=== PATIENT | female | born 1955 | race Caucasian/White ===

== ENCOUNTER 2020-05-12 10:32 | Outpatient (REF) | payer MEDICARE, MEDICAID, SELFPAY ==
--- NOTE | 2020-05-12 10:49 | XR_ITS ---
EXAMINATION: XR CERVICAL SPINE CLINICAL INFORMATION: Cervicalgia COMPARISON: None TECHNIQUE: 3 views of the cervical spine were obtained. FINDINGS: There is slight anterolisthesis of C4 on C5 and C5 on C6. No acute fracture or subluxation. Vertebral body height and alignment is otherwise maintained. Mild disc space narrowing at C6-C7. Small multilevel endplate osteophytes with facet arthropathy. The atlantoaxial joint is well aligned. The dens is intact. The prevertebral soft tissues are unremarkable. The lung apices are clear. XR/XR cervical spine 2V IMPRESSION: Mild degenerative changes throughout the cervical spine.
[2020-05-12 13:28] LABS: Alanine Aminotransferase 24 U/L (0-31); Albumin Level 4.8 g/dL (3.5-5.0); Alkaline Phosphatase 58 U/L (39-117); Anion Gap 14 (12-20); Aspartate Amino Transferase 29 U/L (5-31); Bilirubin Total 0.4 mg/dL (0.0-1.0); Blood Urea Nitrogen 15 mg/dL (9-16); Calcium 9.5 mg/dL (8.4-10.2); Carbon Dioxide 30 mmol/L (22-29); Chloride 98 mmol/L (96-108); Estimated Glomerular Filt Rate > 60; Glucose Random 109 mg/dL (60-115); Potassium 3.9 mmol/l (3.3-5.1); Sodium 138 mmol/L (135-145); Total Protein 8.5 g/dL (6.5-8.0)
== END 2020-05-12 10:33 | disposition home or self-care (01) ==
LOC: HO.LAB 10:32
PROVIDERS: PCP Internal Medicine; Visit Provider Student in an Organized Health Care Education/Training Program
DX: R76.8 Other specified abnormal immunological findings in serum (principal); M54.2 Cervicalgia
CPT/HCPCS: 72040; 80053; 99212

== ENCOUNTER → 2021-03-29 13:09 | Outpatient (BNVA) | payer MEDICARE, MEDICAID, SELFPAY | PROVIDERS: PCP Internal Medicine; Visit Provider Nurse Practitioner Family | DX: M19.042 Primary osteoarthritis, left hand (principal); M54.2 Cervicalgia; R76.8 Other specified abnormal immunological findings in serum | CPT/HCPCS: 99212 ==

== ENCOUNTER 2021-04-26 08:07 | Outpatient (REF) | payer MEDICARE, MEDICAID, SELFPAY ==
--- NOTE | ~2021-04-26 | XR_ITS ---
EXAMINATION: XR HAND, LEFT CLINICAL INFORMATION: Pain in the left hand COMPARISON: 01/06/2019 TECHNIQUE: PA, lateral, and oblique views of the left hand. FINDINGS: There is no fracture or dislocation. Alignment is maintained. Mild joint space narrowing throughout the interphalangeal joints with small osteophytes. The soft tissues appear unremarkable. Mild chondrocalcinosis along the TFCC. XR/XR hand LT min 3V IMPRESSION: Mild degenerative changes throughout the interphalangeal joints.
== END 2021-04-26 08:08 | disposition home or self-care (01) ==
LOC: HO.HOSX 08:07
PROVIDERS: Visit Provider Orthopaedic Surgery
DX: M65.322 Trigger finger, left index finger (principal)
CPT/HCPCS: 20550; 73130; 99202; J1100

== ENCOUNTER → 2021-09-27 12:35 | Outpatient (BNVA) | payer MEDICARE, MEDICAID, SELFPAY | PROVIDERS: PCP Internal Medicine; Visit Provider Nurse Practitioner Family | DX: M19.042 Primary osteoarthritis, left hand (principal); R76.8 Other specified abnormal immunological findings in serum; M54.2 Cervicalgia; M65.322 Trigger finger, left index finger | CPT/HCPCS: 99212 ==

== ENCOUNTER 2021-10-03 07:37 | Outpatient (REF) | payer MEDICARE, MEDICAID, SELFPAY ==
[2021-10-03 08:04] LABS: MANUAL DIFF FLAG NO
[2021-10-03 08:30] LABS: Basophils Percent Auto 0.7 % (0-2); Eosinophils Absolute Auto 0.1 X10*3/uL (0.0-0.4); Eosinophils Percent Auto 1.1 % (0-4); Hemoglobin 13.7 g/dl (12.0-16.0); Imm Gran Abs Auto 0.01 X10*3/uL (0.00-0.03); Imm Gran Pct Auto 0.2 % (0.0-0.4); Lymphocytes Absolute Auto 1.8 X10*3/uL (1.2-4.9); Lymphocytes Percent Auto 32.8 % (20-40); Mean Corpuscular HGB Conc 34.3 g/dl (31.0-35.0); Mean Corpuscular Hemoglobin 28.8 pg (27.0-33.0); Mean Corpuscular Volume 84.2 fL (80.0-98.0); Mean Platelet Volume 9.5 fL (9.4-12.3); Monocytes Absolute Auto 0.4 X10*3/uL (0.1-1.2); Neutrophils Absolute Auto 3.2 x10*3/uL (2.0-8.3); Neutrophils Percent Auto 58.2 % (45-73); Platelet Count 242 X10*3/uL (160-400); Red Blood Count 4.75 X10*6/uL (4.20-5.50); Red Cell Distribution Width 12.5 % (11.0-16.0); White Blood Count 5.4 X10*3/uL (4.8-10.8)
[2021-10-03 09:03] LABS: Alanine Aminotransferase 35 U/L (0-31); Albumin Level 4.3 g/dL (3.5-5.0); Alkaline Phosphatase 75 U/L (39-117); Anion Gap 14 (12-20); Aspartate Amino Transferase 52 U/L (5-31); Bilirubin Total 0.6 mg/dL (0.0-1.0); Blood Urea Nitrogen 14 mg/dL (9-16); Calcium 9.8 mg/dL (8.4-10.2); Carbon Dioxide 25 mmol/L (22-29); Chloride 99 mmol/L (96-108); Estimated Glomerular Filt Rate 56; Glucose Random 373 mg/dL (60-115); Sodium 134 mmol/L (135-145); Total Protein 7.7 g/dL (6.5-8.0)
[2021-10-03 09:10] LABS: Erythrocyte Sedimentation Rate 20 MM/HR (0-20)
== END 2021-10-03 07:38 | disposition home or self-care (01) ==
LOC: HO.LAB 07:37
PROVIDERS: PCP Internal Medicine; Visit Provider Nurse Practitioner Family
DX: R76.8 Other specified abnormal immunological findings in serum (principal)
CPT/HCPCS: 36415; 80053; 85025; 85652; 86140

== ENCOUNTER → 2021-10-25 09:04 | Outpatient (BNVA) | payer MEDICARE, MEDICAID, SELFPAY | PROVIDERS: PCP Internal Medicine; Visit Provider Orthopaedic Surgery | DX: M65.331 Trigger finger, right middle finger (principal); M25.641 Stiffness of right hand, not elsewhere classified | CPT/HCPCS: 99212 ==

== ENCOUNTER → 2021-12-06 10:58 | Outpatient (BNVA) | payer MEDICARE, MEDICAID, SELFPAY | PROVIDERS: PCP Internal Medicine; Visit Provider Orthopaedic Surgery | DX: M65.331 Trigger finger, right middle finger (principal); M25.641 Stiffness of right hand, not elsewhere classified | CPT/HCPCS: 20550; 99212; J1100 ==

== ENCOUNTER → 2022-03-29 07:44 | Outpatient (BNVA) | payer MEDICARE, MEDICAID, SELFPAY | PROVIDERS: PCP Internal Medicine; Visit Provider Nurse Practitioner Family | DX: M19.042 Primary osteoarthritis, left hand (principal); R76.8 Other specified abnormal immunological findings in serum; M54.2 Cervicalgia; M65.331 Trigger finger, right middle finger; M65.322 Trigger finger, left index finger; M54.50 Low back pain, unspecified; Z79.891 Long term (current) use of opiate analgesic; Z79.899 Other long term (current) drug therapy | CPT/HCPCS: 99212 ==

== ENCOUNTER 2022-07-24 08:17 | Outpatient (REF) | payer MEDICARE, MEDICAID, SELFPAY ==
[2022-07-24 08:46] LABS: Estimated Average Glucose 275 mg/dL; Hemoglobin A1c % 11.2 %
[2022-07-24 09:06] LABS: Alanine Aminotransferase 17 U/L (0-31); Albumin Level 4.3 g/dL (3.5-5.0); Alkaline Phosphatase 78 U/L (39-117); Anion Gap 15 (12-20); Aspartate Amino Transferase 21 U/L (5-31); Bilirubin Total 0.4 mg/dL (0.0-1.0); Blood Urea Nitrogen 16 mg/dL (9-16); Carbon Dioxide 28 mmol/L (22-29); Chloride 100 mmol/L (96-108); Estimated Glomerular Filt Rate 52; Glucose Random 166 mg/dL (60-115); Potassium 4.9 mmol/L (3.3-5.1); Sodium 138 mmol/L (135-145); Total Protein 7.8 g/dL (6.5-8.0)
[2022-07-24 09:29] LABS: Amphetamine Screen Urine Not Detected (Not Detect); Barbiturates, Urine POSITIVE (Not Detect); Benzodiazepines Screen Urine Not Detected (Not Detect); Cannabinoid Screen Urine POSITIVE (Not Detect); Cocaine Screen Urine Not Detected (Not Detect); Fentanyl, urine Not Detected (Not Detect); Opiate Screen Urine Not Detected (Not Detect); Phencyclidine Screen Urine Not Detected (Not Detect)
[2022-08-02 08:09] LABS: Tramadol, Ur >10000
[2022-08-02 08:11] LABS: Desmethyltramadol, Ur 2391
== END 2022-07-24 08:18 | disposition home or self-care (01) ==
LOC: HO.LAB 08:17
PROVIDERS: PCP Internal Medicine; Visit Provider Nurse Practitioner Family
DX: M65.331 Trigger finger, right middle finger (principal); R76.8 Other specified abnormal immunological findings in serum; Z79.899 Other long term (current) drug therapy
CPT/HCPCS: 80053; 80307; 80373; 83036

== ENCOUNTER 2022-07-30 06:09 | Outpatient (REF) | payer MEDICARE, MEDICAID, SELFPAY ==
--- NOTE | ~2022-07-30 | XR_ITS ---
EXAMINATION: XR LUMBOSACRAL SPINE CLINICAL INFORMATION: Lower back pain. COMPARISON: None TECHNIQUE: AP and lateral views of the lumbar spine and lateral view of the lumbosacral junction. FINDINGS: There is bony demineralization. There is a mild rotatory levoscoliosis. The lumbar disc spaces are well-maintained. No acute fracture or spondylolisthesis is seen. There is mild anterior spondylosis of the L3 upper endplate. The posterior elements are intact. There are aortoiliac atherosclerotic calcifications. XR/XR lumbar spine 2-3V IMPRESSION: 1. No acute fracture or spondylolisthesis is seen. 2. The lumbar disc spaces are well-maintained. 3. There is mild anterior spondylosis of the L3 upper endplate. 4. There is a mild lumbar rotatory levoscoliosis.
== END 2022-07-30 06:10 | disposition home or self-care (01) ==
LOC: HO.XRAY 06:09
PROVIDERS: PCP Internal Medicine; Visit Provider Nurse Practitioner Family
DX: M54.50 Low back pain, unspecified (principal)
CPT/HCPCS: 72100

== ENCOUNTER → 2022-08-03 07:52 | Outpatient (BNVA) | payer MEDICARE, SELFPAY | PROVIDERS: PCP Internal Medicine; Visit Provider Nurse Practitioner Family | DX: M19.042 Primary osteoarthritis, left hand (principal); M65.331 Trigger finger, right middle finger; M47.816 Spondylosis without myelopathy or radiculopathy, lumbar region; M54.40 Lumbago with sciatica, unspecified side; M54.2 Cervicalgia; R76.8 Other specified abnormal immunological findings in serum | CPT/HCPCS: 99212 ==

== ENCOUNTER → 2022-09-11 13:37 | Outpatient (BNVA) | payer MEDICARE, SELFPAY | PROVIDERS: PCP Internal Medicine; Visit Provider Orthopaedic Surgery | DX: M65.331 Trigger finger, right middle finger (principal); M25.641 Stiffness of right hand, not elsewhere classified; E11.9 Type 2 diabetes mellitus without complications | CPT/HCPCS: 99212 ==

== ENCOUNTER 2023-02-22 08:14 | Outpatient (AMB) | payer MEDICARE, SELFPAY ==
[2023-02-22 08:16] VITALS: BP 140/76; PULSE 91; TEMP 36.1; O2SAT 98; BMI 27.2
--- NOTE | 2023-02-22 08:16 | MHC.OFFVIS ---
Intake Vital Signs 02/22/23 08:16 Height 5 ft 8 in Weight 179 lb 0.246 oz BMI 27.2 BP 140/76 H Blood Pressure Location Rt brachial Position Sitting Pulse 91 Pulse Source Pulse Oximeter Temp 97.0 F Temp Source Skin Pulse Oximetry (%) 98 Intake Visit Reasons: lumbar spondylsosis Video Surveillance Technician Required: No Accompanied by: Self / Same As Patient Allergies penicillin V Allergy (Unknown, Verified 02/22/23 08:18) unknown Cockatoo Allergy (Unknown, Uncoded 02/22/23 08:18) hives pefumes Allergy (Unknown, Uncoded 02/22/23 08:18) hives plants Allergy (Unknown, Uncoded 02/22/23 08:18) hives Medication List - Last Reconciled 02/22/23 by Elliott Velásquez MD albuterol sulfate 90 mcg/actuation 2 puffs inhalation Q4-6H PRN alendronate 70 mg PO QWEEK dnpjxxephx-uyggjzlqroonv-qyof 50-300-40 mg (Fioricet) 1 cap PO DAILY calcium carbonate-vitamin D3 600 mg-5 mcg (200 unit) (Calcium 600 + D(3)) caps PO cyclobenzaprine 5 mg PO BEDTIME PRN dapagliflozin propanediol (Farxiga) 10 mg PO DAILY dexlansoprazole (Dexilant) 60 mg PO DAILY glipizide 10 mg PO BID lisinopril 10 mg PO DAILY metformin 1,000 mg PO BID rosuvastatin 40 mg PO DAILY saxagliptin (Onglyza) 5 mg PO DAILY tramadol 50 mg PO TID PRN vitamin B complex (B Complex-Vitamin B12 tablet) 1 tab PO DAILY HPI HPI Comments History of Present Illness Details This is a 67-year-old female with generalized osteoarthritis who presents for follow-up. States that she continues to have diffuse pain everywhere especially her back, neck, knees. Over the last 2 months she has been having pain in the inside of her left hip when she abducts her left hip as she is getting out of her car. Continues to take tramadol 3 times a day. She mentions that she received numerous injections in her neck and lower back and she states that they have become less effective. [facility] Medical History Cervical pain (neck) Elevated rheumatoid factor Lumbar spondylosis Primary osteoarthritis, left hand Social History Alcohol intake: never Patient Tobacco Use Status: Never used Tobacco Current occupational status: disabled Current occupation: rt hand [employer] Reports neck pain Musc Reports back pain, Reports arthralgias, Reports joint swelling, Reports neck pain and Reports stiffness Physical Exam Vital Signs: Last Vital Signs Temp 97.0 F 02/22/23 08:16 Pulse 91 02/22/23 08:16 BP 140/76 H 02/22/23 08:16 Pulse Ox 98 02/22/23 08:16 BMI result Body Mass Index 27.2 Const General: cooperative, healthy appearing and comfortable Nutritional Appearance: overweight Orientation/consciousness: patient oriented x3 Limitations: no limitations HEENT Head: Yes normocephalic and Yes atraumatic Mouth: moist mucous membranes Resp Effort & Inspection: normal respiratory effort and able to speak in complete sentences Neuro General: patient oriented x3 Extrem Other: Osteoarthritic changes of both hands with no active synovitis Triggering of her left thumb. Some left groin pain with flexion adduction and external rotation of left hip. No trochanteric bursa area tenderness bilaterally Assessment & Plan Assessment & Plan (1) Generalized osteoarthritis: Code(s): M15.9 - Polyosteoarthritis, unspecified Plan: This is a 67-year-old female with generalized osteoarthritis who presents for follow-up. Patient has osteoarthritis affecting multiple areas including spine, knees, hands. For her spine she has received numerous injections in the past and he seemed to have lost effectiveness over the years. She also received multiple injections for her knees. Currently she is managing her pain with tramadol 50 mg 3 times a day. She also takes Flexeril nightly. Patient can continue with tramadol 50 mg t.i.d.. She has been taking Flexeril nightly as well. She has not had any added side effects when combining these 2 over the years. (2) Elevated rheumatoid factor: Code(s): R76.8 - Other specified abnormal immunological findings in serum Plan: Patient with a moderately positive RF.? No evidence of synovitis on physical exam, her exam findings are consistent with osteoarthritis.? Previous serology otherwise is negative with normal inflammatory markers. (3) Trigger finger, right middle finger: Code(s): M65.331 - Trigger finger, right middle finger Plan: In the patient's patient had triggering of her right middle finger. She received injections in the past and surgery was suggested however her HbA1c was significantly elevated. Today triggering of her right middle finger has significantly improved but she is having triggering of her left thumb. Advised patient to do stretching exercises at home. (4) Osteoporosis: Code(s): M81.0 - Age-related osteoporosis without current pathological fracture Qualifiers: Osteoporosis type: age-related Presence of current pathological fracture: without current pathological fracture Qualified Code(s): M81.0 - Age-related osteoporosis without current pathological fracture Plan: On alendronate. Managed by PCP Plan I spent 28 minutes reviewing patient's chart, evaluating patient, counseling patient and documenting in the chart Coding Level of Care Code Est Pt Level 4 (75825) Diagnoses Generalized osteoarthritis M15.9 Elevated rheumatoid factor R76.8 Trigger finger, right middle finger M65.331 Osteoporosis M81.0 Osteoporosis type: age-related Presence of current pathological fracture: without current pathological fracture
== END 2023-02-22 08:53 | disposition home or self-care (01) ==
PROVIDERS: PCP Internal Medicine; Visit Provider Student in an Organized Health Care Education/Training Program
DX: M15.9 Polyosteoarthritis, unspecified (principal); R76.8 Other specified abnormal immunological findings in serum; M65.331 Trigger finger, right middle finger; M81.0 Age-related osteoporosis without current pathological fracture
CPT/HCPCS: 99214

== ENCOUNTER → 2023-02-22 08:14 | Outpatient (BNVA) | payer MEDICARE, SELFPAY | PROVIDERS: PCP Internal Medicine; Visit Provider Student in an Organized Health Care Education/Training Program | DX: M15.9 Polyosteoarthritis, unspecified (principal); M81.0 Age-related osteoporosis without current pathological fracture; M65.331 Trigger finger, right middle finger; R76.8 Other specified abnormal immunological findings in serum | CPT/HCPCS: 99212 ==

== ENCOUNTER 2023-08-26 07:27 | Outpatient (AMB) | payer MEDICARE, SELFPAY ==
--- NOTE | 2023-08-26 07:42 | A.OFFVIS_ITS ---
Intake Vital Signs 08/26/23 07:45 Height 5 ft 8 in Weight 176 lb 5.917 oz BMI 26.8 BP 128/62 Blood Pressure Location Rt brachial Position Sitting Pulse 103 H Pulse Source Pulse Oximeter Pulse Oximetry (%) 98 Intake Visit Reasons: OA Intake Note: Patient last seen 02/22/23 presents today for follow up Bacon De Rinder Required: No Allergies penicillin V Allergy (Unknown, Verified 08/26/23 07:54) unknown Cockatoo Allergy (Unknown, Uncoded 08/26/23 07:54) hives pefumes Allergy (Unknown, Uncoded 08/26/23 07:54) hives plants Allergy (Unknown, Uncoded 08/26/23 07:54) hives Medication List - Last Reconciled 08/26/23 by Elliott Velásquez MD albuterol sulfate 90 mcg/actuation 2 puffs inhalation Q4-6H PRN alendronate 70 mg PO QWEEK twgbyusrlp-mpovhfpjlgcsr-dxul 50-300-40 mg (Fioricet) 1 cap PO DAILY calcium carbonate-vitamin D3 600 mg-10 mcg (400 unit) 1 tab PO BID cyclobenzaprine 5 mg PO BEDTIME PRN dapagliflozin propanediol (Farxiga) 10 mg PO DAILY dexlansoprazole (Dexilant) 60 mg PO DAILY glipizide 10 mg PO BID linagliptin (Tradjenta) 5 mg PO DAILY lisinopril 10 mg PO DAILY meclizine 12.5 mg PO BID metformin ER 1,000 mg PO BID rosuvastatin 40 mg PO DAILY saxagliptin (Onglyza) 5 mg PO DAILY tramadol 50 mg PO TID PRN vitamin B complex (B Complex-Vitamin B12 tablet) 1 tab PO DAILY HPI HPI Comments History of Present Illness Details This is a 67-year-old female with generalized osteoarthritis who presents for follow-up. States that she continues to have diffuse pain everywhere especially her back, neck, knees, hands. Pain is especially worse with activity. She continues to take tramadol 1 tab in the morning and 2 tabs at night which takes some of the edge off. She she consumes edibles marijuana twice a week. She continues to take Flexeril nightly. Her symptoms are stable overall [facility] Medical History Lumbar spondylosis Cervical pain (neck) Primary osteoarthritis, left hand Elevated rheumatoid factor Social History Alcohol intake: never Patient Tobacco Use Status: Never used Tobacco Current occupational status: disabled Current occupation: rt hand [employer] Reports neck pain Musc Reports back pain, Reports arthralgias, Reports neck pain and Reports stiffness Physical Exam Vital Signs: Last Vital Signs Pulse 103 H 08/26/23 07:45 BP 128/62 08/26/23 07:45 Pulse Ox 98 08/26/23 07:45 BMI result Body Mass Index 26.8 Const General: cooperative, healthy appearing and comfortable Nutritional Appearance: overweight Orientation/consciousness: patient oriented x3 Limitations: no limitations HEENT Head: Yes normocephalic and Yes atraumatic Mouth: moist mucous membranes Resp Effort & Inspection: normal respiratory effort and able to speak in complete sentences Auscultation: clear to auscultation bilaterally Cardio Rate: regular rate Rhythm: regular rhythm Neuro General: patient oriented x3 Extrem Other: Osteoarthritic changes of both hands with no active synovitis Bilateral knee crepitus Assessment & Plan Assessment & Plan (1) Generalized osteoarthritis: Code(s): M15.9 - Polyosteoarthritis, unspecified Plan: This is a 67-year-old female with generalized osteoarthritis who presents for follow-up. Patient has osteoarthritis affecting multiple areas including spine, knees, hands. For her spine she has received numerous injections in the past and he seemed to have lost effectiveness over the years. She also received multiple injections for her knees. Currently she is managing her pain with tramadol 50 mg 3 times a day. She also takes Flexeril 5 mg nightly. She consumes edible marijuana twice a week. Patient can continue with tramadol 50 mg t.i.d.. She has been taking Flexeril nightly as well. She has not had any added side effects when combining these 2 over the years. I discussed with patient the potential additive sedating effects of tramadol and marijuana. I explained that this has not been adequately studied. Advised patient not drive after consuming marijuana. Patient states that she has not had any side effects. She is aware of the risks and would like to continue with her current management. UDS before next visit in 6 months (2) Elevated rheumatoid factor: Code(s): R76.8 - Other specified abnormal immunological findings in serum Plan: Patient with a moderately positive RF.? No evidence of synovitis on physical exam, her exam findings are consistent with osteoarthritis.? Previous serology otherwise is negative with normal inflammatory markers. (3) Medication monitoring encounter: Comment: tramadol pain contract updated 03/29/2022 Code(s): Z51.81 - Encounter for therapeutic drug level monitoring Plan I spent 28 minutes reviewing patient's chart, evaluating patient, placing orders, counseling patient and documenting in the chart Orders: Orders Drug Screen Urine 6 Months Z51.81 - Encounter for therapeutic drug level monitoring Medications: Refilled tramadol 50 mg PO TID PRN 90 tabs 5RF pain M54.2 - Cervicalgia Coding Level of Care Code Est Pt Level 4 (58364) Diagnoses Generalized osteoarthritis M15.9 Elevated rheumatoid factor R76.8 Medication monitoring encounter Z51.81
[2023-08-26 07:45] VITALS: BP 128/62; PULSE 103; O2SAT 98; BMI 26.8
== END 2023-08-26 08:05 | disposition home or self-care (01) ==
PROVIDERS: PCP Internal Medicine; Visit Provider Student in an Organized Health Care Education/Training Program
DX: M15.9 Polyosteoarthritis, unspecified (principal); R76.8 Other specified abnormal immunological findings in serum; Z51.81 Encounter for therapeutic drug level monitoring
CPT/HCPCS: 99214

== ENCOUNTER → 2023-08-26 07:27 | Outpatient (BNVA) | payer MEDICARE, SELFPAY | PROVIDERS: PCP Internal Medicine; Visit Provider Student in an Organized Health Care Education/Training Program | DX: Z51.81 Encounter for therapeutic drug level monitoring (principal); F11.20 Opioid dependence, uncomplicated; M15.9 Polyosteoarthritis, unspecified; R76.8 Other specified abnormal immunological findings in serum | CPT/HCPCS: 99212 ==

== ENCOUNTER 2024-02-19 07:34 | Outpatient (REF) | payer MEDICARE, SELFPAY ==
[2024-02-19 09:25] LABS: Amphetamine Screen Urine Not Detected (Not Detect); Barbiturates, Urine POSITIVE (Not Detect); Benzodiazepines Screen Urine Not Detected (Not Detect); Buprenorphine Scr Not Detected (Not Detect); Cannabinoid Screen Urine POSITIVE (Not Detect); Cocaine Screen Urine Not Detected (Not Detect); Fentanyl, urine Not Detected (Not Detect); Methadone Screen, Urine Not Detected (Not Detect); Opiate Screen Urine Not Detected (Not Detect); Oxycodone Screen Urine Not Detected (Not Detect); Phencyclidine Screen Urine Not Detected (Not Detect)
== END 2024-02-19 07:35 | disposition home or self-care (01) ==
LOC: HO.LAB 07:34
PROVIDERS: PCP Internal Medicine; Visit Provider Student in an Organized Health Care Education/Training Program
DX: Z51.81 Encounter for therapeutic drug level monitoring (principal)
CPT/HCPCS: 80307

== ENCOUNTER 2024-05-27 07:36 | Outpatient (AMB) | payer MEDICARE, SELFPAY ==
--- NOTE | 2024-05-27 07:43 | A.OFFVIS_ITS ---
Vital Signs 05/27/24 07:50 Height 5 ft 8 in Weight 175 lb 14.862 oz BMI 26.7 BP 115/80 Blood Pressure Location Lt brachial Position Sitting Respiration 16 Pulse 64 Pulse Source Pulse Oximeter Pulse Oximetry (%) 98 Oxygen Delivery Method Room Air Intake Visit Reasons: OA/cm Intake Note: Patient presents for OA. Allergies penicillin V Allergy (Unknown, Verified 05/27/24 07:45) unknown Cockatoo Allergy (Unknown, Uncoded 08/26/23 07:54) hives pefumes Allergy (Unknown, Uncoded 08/26/23 07:54) hives plants Allergy (Unknown, Uncoded 08/26/23 07:54) hives Medication List - Last Reconciled 05/27/24 by Elliott Velásquez MD albuterol sulfate 90 mcg/actuation 2 puffs inhalation Q4-6H PRN alendronate 70 mg PO QWEEK bufzvdwmwv-sgzytwsbkiehq-yieo 50-300-40 mg (Fioricet) 1 cap PO DAILY calcium carbonate-vitamin D3 600 mg-10 mcg (400 unit) 1 tab PO BID cyclobenzaprine 5 mg PO BEDTIME PRN dapagliflozin propanediol (Farxiga) 10 mg PO DAILY dexlansoprazole (Dexilant) 60 mg PO DAILY glipizide 10 mg PO BID linagliptin (Tradjenta) 5 mg PO DAILY lisinopril 10 mg PO DAILY meclizine 12.5 mg PO BID metformin ER 1,000 mg PO BID rosuvastatin 40 mg PO DAILY saxagliptin (Onglyza) 5 mg PO DAILY semaglutide (Ozempic) 0.25 mg subcut QWEEK tramadol 50 mg PO TID PRN vitamin B complex (B Complex-Vitamin B12 tablet) 1 tab PO DAILY HPI Comments Details: This is a 68-year-old female with generalized osteoarthritis who presents for follow-up. States that she continues to have diffuse pain everywhere especially her back, neck, knees, hands. Pain is especially worse with activity. She con tinues to take tramadol 1 tab in the morning and 2 tabs at night which takes some of the edge off. She she consumes edibles marijuana twice a week. She continues to take Flexeril nightly. Her symptoms are stable overall [facility] Medical History (Updated 05/27/24 @ 08:12 by Elliott Velásquez MD) LES (obstructive sleep apnea) Lumbar spondylosis Cervical pain (neck) Primary osteoarthritis, left hand Elevated rheumatoid factor Family History Mother Cancer Father Dementia Heart failure Social History Household Members: Significant Other Housing: House Alcohol intake: never Patient Tobacco Use Status: Never used Tobacco Current occupational status: disabled Current occupation: rt hand [employer] Reports back pain, Reports arthralgias and Reports stiffness Physical Exam Vital Signs: Last Vital Signs Pulse 64 05/27/24 07:50 Resp 16 05/27/24 07:50 BP 115/80 05/27/24 07:50 Pulse Ox 98 05/27/24 07:50 Oxygen Delivery Method Room Air 05/27/24 07:50 BMI result Body Mass Index 26.7 Const General: cooperative, healthy appearing and comfortable Nutritional Appearance: overweight Orientation/consciousness: patient oriented x3 Limitations: no limitations HEENT Head: Yes normocephalic and Yes atraumatic Mouth: moist mucous membranes Resp Effort & Inspection: normal respiratory effort and able to speak in complete sen tences Auscultation: clear to auscultation bilaterally Cardio Rate: regular rate Rhythm: regular rhythm Neuro General: patient oriented x3 Extrem Other: Significant Osteoarthritic changes of both hands with no active synovitis Bilateral knee crepitus Few fibromyalgia tender points Assessment & Plan Assessment & Plan (1) Generalized osteoarthritis: Code(s): M15.9 - Polyosteoarthritis, unspecified Category: Medical Plan: This is a 67-year-old female with generalized osteoarthritis who presents for follow-up. Patient has osteoarthritis affecting multiple areas including spine, knees, hands. For her spine she has received numerous injections in the past and he seemed to have lost effectiveness over the years. She also received multiple injections for her knees. Currently she is managing her pain with tramadol 50 mg 3 times a day. She also takes Flexeril 5 mg nightly. She consumes edible marijuana twice a week. Patient can continue with tramadol 50 mg t.i.d.. She has been taking Flexeril nightly as well. She has not had any added side effects when combining these 2 over the years. I discussed with patient the potential additive sedating effects of tramadol and marijuana. I explained that this has not been adequately studied. Advised patient not drive after consuming marijuana. Patient states that she has not had any side effects. She is aware of the risks and would like to continue with her current management. We discussed management of fibromyalgia. Advised patient to use her CPAP regularly. Have a good exercise routine. I provided patient with a booklet about the management of fibromyalgia. Follow-up in 6 months (2) Elevated rheumatoid factor: Code(s): R76.8 - Other specified abnormal immunological findings in serum Category: Medical Plan: Patient with a moderately positive RF.? No evidence of synovitis on physical exam, her exam findings are consistent with osteoarthritis.? Previous serology otherwise is negative with normal inflammatory markers. (3) Medication monitoring encounter: Comment: tramadol pain contract updated 03/29/2022 Code(s): Z51.81 - Encounter for therapeutic drug level monitoring Category: Medical Plan I spent 15 minutes reviewing patient's chart, evaluating patient, counseling patient and documenting in the chart Coding Level of Care Code Est Pt Level 3 (27601) Diagnoses Generalized osteoarthritis M15.9 Elevated rheumatoid factor R76.8 Medication monitoring encounter Z51.81
[2024-05-27 07:50] VITALS: BP 115/80; PULSE 64; RESP 16; O2SAT 98; BMI 26.7
== END 2024-05-27 08:11 | disposition home or self-care (01) ==
PROVIDERS: PCP Internal Medicine; Visit Provider Student in an Organized Health Care Education/Training Program
DX: M15.9 Polyosteoarthritis, unspecified (principal); R76.8 Other specified abnormal immunological findings in serum; Z51.81 Encounter for therapeutic drug level monitoring
CPT/HCPCS: 99213

== ENCOUNTER → 2024-05-27 07:36 | Outpatient (BNVA) | payer MEDICARE, SELFPAY | PROVIDERS: PCP Internal Medicine; Visit Provider Student in an Organized Health Care Education/Training Program | DX: M15.9 Polyosteoarthritis, unspecified (principal); R76.8 Other specified abnormal immunological findings in serum; Z51.81 Encounter for therapeutic drug level monitoring | CPT/HCPCS: 99212 ==

== ENCOUNTER 2024-11-26 07:24 | Outpatient (AMB) | payer MEDICARE, SELFPAY ==
--- OUTSIDE RECORDS SUMMARY | 2024-11-26 07:26 | XMS_ITS | Encounter Summary ---
Author Organization [facility] Address [address] [place] [address] Care Team Providers Care Psychiatric Lpn Name Role Phone Marianela Schumacher MD Primary Care Provider [phone] Encounter Details Date Type Department Care Team (Late st Contact Info) Description 11/25/2024 Telephone Internal Medicine - [place] [address] [place] [id number] Brittny Harding MA Social History Tobacco Use Types Packs/Day Years Used Date Smoking Tobacco: Never Smokeless Tobacco: Never Alcohol Use Standard Drinks/Week Comments No 0 (1 standard drink = 0.6 oz pur e alcohol) Comments No Sex and Gender Information Value Date Recorded Sex Assigned at Not on file Legal Sex Female 2:56 AM EST Gender Identity Not on file Sexual Orientation Not on file documented as of this encounter Progress Notes * Dionna Llanes - 11/25/2024 4:51 PM EDT Pt is cb, authorized to leave detailed message [phone] * Brittny Harding MA - 11/25/2024 2:04 PM EDT .ms * Brittny Harding MA - 11/25/2024 2:04 PM EDT ----- Message from Yazmin Schumacher MD sent at 11/16/2024 8:47 PM EDT ----- Bone density showing osteopenia , continue calcium with vitamin D supplement twice daily, documented in this encounter Plan of Treatment Upcoming Encounters Date Type Department Care Team (Late st Contact Info) Description 01/05/2025 7:30 AM EDT Office Visit Endocrinology [facility] [address] [place] [phone] Pily Booth PA [address] [place] [address] 05/26/2025 8:15 AM EST Office Visit Internal Medicine - [place] [address] [facility] [address] [place] [phone] Marianela Schumacher MD [address] [facility] [address] [place] [phone] documented as of this encounter Visit Diagnoses Not on filedocumented in this encounter Additional Health Concerns Assessment Noted Time PHQ-9 Depression Total Score: 1 11/14/19 25 7:13 PM EDT A fall risk assessment has been complete d for the patient 05/19/2024 8:31 AM EST documented as of this encounter Care Teams Psychiatric Lpn Relationship Specialty Start Date End Date Marianela Schumacher MD [address] [facility] [address] [place] [phone] PCP - General Internal Medicine 08/08/18 documented as of this encounter
--- NOTE | 2024-11-26 07:27 | A.OFFVIS_ITS ---
Vital Signs 11/26/24 07:37 Height 5 ft 8 in Weight 179 lb 3.773 oz BMI 27.2 BP 140/80 H Blood Pressure Location Lt brachial Position Sitting Pulse 88 Pulse Source Pulse Oximeter Pulse Oximetry (%) 89 L Oxygen Delivery Method Room Air Intake Visit Reasons: OA/FMS Intake Note: Patient presents for OA/FMS follow up. Allergies penicillin V Allergy (Unknown, Verified 11/26/24 07:30) unknown Cockatoo Allergy (Unknown, Uncoded 08/26/23 07:54) hives pefumes Allergy (Unknown, Uncoded 08/26/23 07:54) hives plants Allergy (Unknown, Uncoded 08/26/23 07:54) hives HPI Comments Details: Patient is a 69-year-old female with asthma, diabetes, hypertension, polyarticular osteoarthritis, and osteoporosis here today for follow up Interval History: Patient last seen 05/27/[address] Velásquez. At that time she was following up for her polyarticular osteoarthritis. Had diffuse pain especially involving her back, neck, hands and knees. Worse with activity. Today, She continues to have the same complaints Rheumatologic History: Polyarticular osteoarthritis Has a moderately positive RF without today evidence of synovitis. Normal inflammatory markers Follows with her PCP for her osteoporosis Took alendronate for 5 years and currently on drug holiday Had a bone density 10/2024 showing osteopenia Mom with OA and RA Current Rheumatology Medication(s): Tramadol 50 mg t.i.d. [facility] Medical History (Updated 05/27/24 @ 08:12 by Elliott Velásquez MD) LES (obstructive sleep apnea) Lumbar spondylosis Cervical pain (neck) Primary osteoarthritis, left hand Elevated rheumatoid factor Family History Mother Cancer Father Dementia Heart failure Social History Household Members: Significant Other Housing: House Alcohol intake: never Patient Tobacco Use Status: Never used Tobacco Current occupational status: disabled Current occupation: rt hand Review of Systems Const Details: Review of Systems Constitutional: Denies fever, chills, weight loss ENT: Denies vision changes, eye pain or eye redness, dental caries, dry mouth GI: Denies nausea, vomiting, diarrhea, abdominal pain, change in BM Pulm: Denies SOB, ARTEAGA, hemoptysis, wheezing Cards: Denies chest pain, palpitations Skin: Denies Raynaud's, rash, nail changes, photosensitivity, COUNSELOR/ART THERAPIST: Denies headaches, weakness, paresthesias, recurrent falls MSK: as per HPI All other systems reviewed and are unremarkable except noted above Physical Exam Vital Signs: Last Vital Signs Pulse 88 11/26/24 07:37 BP 140/80 H 11/26/24 07:37 Pulse Ox 89 L 11/26/24 07:37 Oxygen Delivery Method Room Air 11/26/24 07:37 BMI result Body Mass Index 27.2 Vital signs reviewed Physical Examination CONSTITUITIONAL Patient alert and cooperative. Well appearing and in no apparent painful distress HEENT Conjunctiva and sclera clear. ?No lymphadenopathy. ? CHEST/RESPIRATORY SYSTEM Normal respiratory effort and able to speak in complete sentences. ?Clear to auscultation bilaterally. ?No crackles, rales, rhonchi, wheezes heard. CARDIAC SYSTEM Regular rate and rhythm. ?S1 and S2 heard no murmurs. ?Radial pulses intact bilaterally MSK Hands: ?Able to make a fist. No synovitis noted to the MCPs, PIPs or DIPs. ?No tenderness to palpation of these joints. Prominent herbeden's nodes and latrice's Wrists: ?Full range of motion at the wrists without pain. ?No tenderness to palpation or synovitis noted to the wrists. TTP of the left ECU tendon Elbows: Full range of motion without pain. No tenderness, weakness, swelling, increased warmth or erythema. Shoulders: Full range of active range of motion without pain. No tenderness, weakness, swelling, increased warmth or erythema. TTP of bilateral AC joints Knees: ?Full range of motion. ?No tenderness, swelling, increased warmth or erythema.?No effusion. Crepitations felt Ankles: Full range of motion. ?No tenderness, swelling, increased warmth or erythema.? Feet: ?Negative squeeze test. ?No tenderness to palpation or swelling of the MT Ps. Tender points:?Tenderness to palpation of the bilateral trapezius, supraspinatus, greater trochanters, anterior costochondral junctions, bilateral gluteal areas, bilateral suboccipital muscle insertions SKIN Skin intact without rashes. Results Reviewed Results Reviewed: XR L Spine 07/2022 FINDINGS: There is bony demineralization. There is a mild rotatory levoscoliosis. The lumbar disc spaces are well-maintained. No acute fracture or spondylolisthesis is seen. There is mild anterior spondylosis of the L3 upper endplate. The posterior elements are intact. There are aortoiliac atherosclerotic calcifications. IMPRESSION: 1. No acute fracture or spondylolisthesis is seen. 2. The lumbar disc spaces are well-maintained. 3. There is mild anterior spondylosis of the L3 upper endplate. 4. There is a mild lumbar rotatory levoscoliosis. XR Bilateral Hands 04/2021 FINDINGS: There is no fracture or dislocation. Alignment is maintained. Mild joint space narrowing throughout the interphalangeal joints with small osteophytes. The soft tissues appear unremarkable. Mild chondrocalcinosis along the TFCC. IMPRESSION: Mild degenerative changes throughout the interphalangeal joints. Assessment & Plan Assessment & Plan (1) Generalized osteoarthritis: Code(s): M15.9 - Polyosteoarthritis, unspecified Category: Medical Plan: #Polyarticular OA Patient is a 69-year-old female with polyarticular osteoarthritis here today for follow up. OA is stable Plan - Tramadol 50mg tid - RTC 1 year (2) Osteoporosis: Code(s): M81.0 - Age-related osteoporosis without current pathological fracture Category: Medical Qualifiers: Osteoporosis type: age-related Presence of current pathological fracture: without current pathological fracture Qualified Code(s): M81.0 - Age-related osteoporosis without current pathological fracture Plan: #Osteoporosis Patient diagnosed with osteoporosis by her primary and currently on alendronate from her primary. Currently on drug holiday. Recommending that patient continue to take her vitamin-D and do weight-bearing exercises (3) Elevated rheumatoid factor: Code(s): R76.8 - Other specified abnormal immunological findings in serum Category: Medical Plan: #Positive RF At this time there is no evidence of any underlying synovitis. Approximately 1 2 5% of healthy individuals have positive rheumatoid factor tests. Factors that can cause elevated rheumatoid factor vitals include age and smoking. She also has a family history of RA in her mother which could also contribute to her RF positivity No concern for rheumatoid arthritis at this time Treva F, Vonda R, Gorge R. Rheumatoid factors: clinical applications. [employer]. 2013;35(6):727-34. doi: 10.1155/2013/143537. Epub 2012May 06. PMID: [id number]; PMCID: [id number]. Plan I spent 20 minutes reviewing the record and labs, taking a history, examining the patient, discussing the treatment plan, ordering diagnostic work up and documenting in the medical record Coding Level of Care Code Est Pt Level 3 (12946) Complex EM visit Add On G2211 Diagnoses Generalized osteoarthritis M15.9 Age-related osteoporosis without current pathological fracture M81.0 Osteoporosis type: age-related Presence of current pathological fracture: without current pathological fracture Elevated rheumatoid factor R76.8
[2024-11-26 07:37] VITALS: BP 140/80; PULSE 88; O2SAT 89; BMI 27.2
== END 2024-11-26 08:01 | disposition home or self-care (01) ==
PROVIDERS: PCP Internal Medicine; Visit Provider Student in an Organized Health Care Education/Training Program
DX: M15.9 Polyosteoarthritis, unspecified (principal); M81.0 Age-related osteoporosis without current pathological fracture; R76.8 Other specified abnormal immunological findings in serum
CPT/HCPCS: 99213; G2211

== ENCOUNTER → 2024-11-26 07:24 | Outpatient (BNVA) | payer MEDICARE, OTHER, SELFPAY | PROVIDERS: PCP Internal Medicine; Visit Provider Student in an Organized Health Care Education/Training Program | DX: M15.9 Polyosteoarthritis, unspecified (principal); M81.0 Age-related osteoporosis without current pathological fracture; R76.8 Other specified abnormal immunological findings in serum | CPT/HCPCS: 99212 ==